=== PATIENT | male | born 1930 | race Two or more races ===

== ENCOUNTER 2017-02-04 19:38 | Emergency (ER) | payer MEDICARE ==
[~2017-02-04] VITALS: Ht 167.6 cm; Wt 72.6 kg
[2017-02-04 19:53] VITALS: BP 160/74
--- NOTE | 2017-02-04 20:04 | NUR ---
PT IS A/OX4 AT THIS TIME AND IS REFUSING MEDICAL TREATMENT AND WANTS TO GO HOME, PT SON IS WITH PT AND IS WILLING TO TAKE HIM HOME PT AND SON WALKED OUT OF THE ER WITH A STEADY GAIT
== END 2017-02-04 20:07 | disposition left against medical advice (07) ==
LOC: ER 19:42
DX: Z53.21 Procedure and treatment not carried out due to patient leaving prior to being seen by health care provider (principal)
CPT/HCPCS: A4606; Z7610